=== PATIENT | male | born 1960 | race African-American/Black ===

== ENCOUNTER 2018-03-04 13:51 | Emergency (ER) | payer MEDICAID ==
[~2018-03-04] VITALS: Ht 180.3 cm; Wt 82.0 kg
[2018-03-04] MEDS ORDERED: KETOROLAC 60MG/2ML VIAL IM ONE (16:15)
[2018-03-04] MEDS ORDERED: DEXAMETHASONE 10 MG/ML VIAL IM ONE (16:15)
[2018-03-04 17:05] VITALS: BP 148/81
== END 2018-03-04 17:07 | disposition home or self-care (01) ==
LOC: ER 13:51
DX: M54.30 Sciatica, unspecified side (principal); M10.9 Gout, unspecified; F17.200 Nicotine dependence, unspecified, uncomplicated
CPT/HCPCS: 96372; 99284; J1100; J1885; Z7610

== ENCOUNTER 2023-10-26 20:17 | Emergency (ER) | payer MEDICAID ==
[~2023-10-26] VITALS: Ht 180.3 cm; Wt 79.0 kg
[2023-10-26 20:22] VITALS: TEMP 98.1; O2SAT 98
[2023-10-26] MEDS: TETANUS, DIPHTHERIA, PERTUSSIS VAC/PF 0.5ML (>10YR OLD) IM ONE (20:45)
[2023-10-26] MEDS: LIDOCAINE HCL/PF 1% 10 MG/ML 5ML VIAL INFIL ONE (20:45)
[2023-10-26] MEDS ORDERED: SULF1TAB48 MT (22:28)
[2023-10-26 23:08] VITALS: BP 143/81; PULSE 63; RESP 16
== END 2023-10-26 23:11 | disposition home or self-care (01) ==
LOC: ER 20:17
DX: L02.412 Cutaneous abscess of left axilla (principal); F12.10 Cannabis abuse, uncomplicated; Z85.9 Personal history of malignant neoplasm, unspecified
CPT/HCPCS: 99283; 10060; 90715; 90471; J3490